=== PATIENT | male | born 1990 | race African-American/Black ===

== ENCOUNTER 2018-07-20 19:34 | Observation (INO) | payer MEDICAID ==
[~2018-07-20 19:34] MED LIST: LACTATED RINGERS 1,000 ML IV ONE
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
--- NOTE | 2018-07-20 21:45 | XRAY Report ---
Reason: rectal FB Procedure Date: 07/20/2018 Accession Number: [id number] / [id number] Procedure: XR - Abdomen 1 View X-Ray CPT Code: 26374 FULL RESULT: EXAM: ABDOMEN RADIOGRAPHY EXAM DATE: 07/20/2018 09:23 PM. CLINICAL HISTORY: Rectal FB. COMPARISON: None. TECHNIQUE: 1 view. FINDINGS: Bowel Gas Pattern: Nonspecific bowel gas pattern. Other: There is a 7.5 x 1.5 cm radiopacity projecting over the mid sacrum. There is a 1.7 x 1.0 cm radiopacity projecting over the left symphysis pubis. IMPRESSION: 1. There is a 7.5 x 1.5 cm radiopacity projecting over the mid sacrum. There is a 1.7 x 1.0 cm radiopacity projecting over the left symphysis pubis. 2. Nonspecific bowel gas pattern. RADIA
[2018-07-20] MEDS ORDERED: SODIUM CHLORIDE 0.9% 1,000 ML IV ONE (21:48)
[2018-07-20 22:05] LABS: BASOPHILS # (AUTO) 0.1 10^3/uL (0.0-0.1); BASOPHILS % (AUTO) 1.1 %; EOSINOPHILS # (AUTO) 0.2 10^3/uL (0.0-0.7); EOSINOPHILS % (AUTO) 2.1 %; LYMPHOCYTES # (AUTO) 1.4 10^3/uL (1.5-3.5); LYMPHOCYTES % (AUTO) 12.2 %; MEAN CORPUSCULAR HEMOGLOBIN 29.5 pg (27.0-31.0); MEAN CORPUSCULAR VOLUME 86.9 fL (80.0-94.0); MEAN PLATELET VOLUME 8.8 fL (7.4-11.4); MONOCYTES # (AUTO) 0.6 10^3/uL (0.0-1.0); MONOCYTES % (AUTO) 5.4 %; NEUTROPHILS # (AUTO) 9.1 10^3/uL (1.5-6.6); NEUTROPHILS % (AUTO) 79.2 %; PLT - PLATELET COUNT 261 10^3/uL (130-450); RED BLOOD COUNT 5.07 10^6/uL (4.70-6.10); RED CELL DISTRIBUTION WIDTH 14.1 % (12.0-15.0); WHITE BLOOD COUNT 11.5 x10^3/uL (4.8-10.8)
[2018-07-20] MEDS ORDERED: ceFAZolin 2 GM/50 ML 2 GM/50 ML BAG IV ONE (22:19)
[2018-07-20 22:20] LABS: ALBUMIN 4.6 g/dL (3.2-5.5); ALBUMIN/GLOBULIN RATIO 1.4 (1.0-2.2); BILIRUBIN,TOTAL 0.7 mg/dL (0.2-1.0); CALCIUM 9.7 mg/dL (8.5-10.3); CREATININE 0.8 mg/dL (0.6-1.2); TOTAL PROTEIN 7.8 g/dL (6.7-8.2)
--- NOTE | 2018-07-20 22:20 | ANESTHESIA ---
Pre-Anesthesia VS, & Labs - Diagnosis Rectal Foreign Body - Procedure Removal of rectal Foreign body Vital Signs: Temp Pulse Resp BP Pulse Ox 37.2 C 83 18 143/95 H 100 07/20/18 19:35 07/20/18 19:35 07/20/18 19:35 07/20/18 19:35 07/20/18 19:35 Height 6 ft 2 in Weight (kg) 84.2 kg Body Mass Index 23.8 - NPO Other Last Food Intake: 1700 pizza - Lab Results Current Lab Results: Laboratory Tests 07/20/18 21:58: WBC 11.5 H, RBC 5.07, Hgb 15.0, Hct 44.0, MCV 86.9, MCH 29.5, MCHC 34.0, RDW 14.1, Plt Count 261, MPV 8.8, Neut # (Auto) 9.1 H, Lymph # (Auto) 1.4 L, [place] # (Auto) 0.6, Eos # (Auto) 0.2, Baso # (Auto) 0.1, Absolute Nucleated RBC 0.02, Nucleated RBC % 0.2 Lab results reviewed: Yes Fish Bones: 07/20/18 21:58 Home Medications and Allergies Home Medications: Ambulatory Orders No Known Home Medications 07/20/18 Active Medications Sodium Chloride (Normal Saline 0.9%) 1,000 mls @ 150 mls/hr IV .Q6H40M ONE Stop: 07/21/18 04:27 No Known Home Medications 07/20/18 Allergies/Adverse Reactions: Allergies Allergy/AdvReac Type Severity Reaction Status Date / Time No Known Drug Allergies Allergy Verified 07/20/18 19:39 Anes History & Medical History - Anesthetic History Anesthesia Complications: reports: No previous complications Family history of Anesthesia Complications: Denies Family history of Malignant Hyperthermia: Denies - Medical History Cardiovascular: reports: None Pulmonary: reports: Asthma Gastrointestinal: reports: None Urinary: reports: None Neuro: reports: None Musculoskeletal: reports: None Endocrine/Autoimmune: reports: None Blood Disorders: reports: None Skin: reports: None Smoking Status: Current every day smoker (1/2 pack/day) Psychosocial: reports: No issues indicated Exam General: Alert, Oriented x3, Cooperative, No acute distress Dental: Poor dentition Mouth Openin Fingerbreadth Neck Mobility: Normal Mallampati classification: I Thyromental Distance: 4-6 cm Respiratory: Lungs clear, Normal breath sounds, No respiratory distress, No accessory muscle use Cardiovascular: Regular rate, Normal S1, Normal S2, No murmurs Mental/Cognitive Status: Alert/Oriented X3, Normal for patient Cognitive Status: Within normal limits Plan Anesthesia Type: General Consent for Procedure(s) Verified and Reviewed: Yes Code Status: Attempt Resuscitation ASA classification: 2-Mild systemic disease Is this case an emergency?: Yes
[2018-07-20] MEDS ORDERED: LACTATED RINGERS 1,000 ML IV ONE (22:54)
[2018-07-20] MEDS ORDERED: SUCCINYLCHOLINE 200 MG/10 ML VIAL IVP ONE (23:51)
[2018-07-20] MEDS ORDERED: KETOROLAC 30 MG/ML VIAL IVP ONE (23:51)
[2018-07-20] MEDS ORDERED: ROCURONIUM 50 MG/5 ML VIAL IVP ONE (23:51)
[2018-07-20] MEDS ORDERED: DEXAMETHASONE 4 MG/ML VIAL IVP ONE (23:51)
[2018-07-20] MEDS ORDERED: fentaNYL 250 MCG/5 ML VIAL IVP ONE (23:51)
[2018-07-20] MEDS ORDERED: MIDAZOLAM 2 MG/2 ML VIAL IVP ONE (23:51)
[2018-07-20] MEDS ORDERED: ONDANSETRON 4 MG/2 ML VIAL IVP ONE (23:51)
[2018-07-20] MEDS ORDERED: fentaNYL 100 MCG/2 ML VIAL IVP ONE (23:51)
[2018-07-20] MEDS ORDERED: PROPOFOL 200 MG/20 ML VIAL IVP ONE (23:51)
[2018-07-21] MEDS ORDERED: LACTATED RINGERS 1,000 ML IV ONE (00:40)
[2018-07-21] MEDS ORDERED: SUGAMMADEX 200 MG/2 ML VIAL IVP ONE (01:30)
[2018-07-21] MEDS ORDERED: ONDANSETRON 4 MG/2 ML VIAL IVP PRN (01:40)
[2018-07-21] MEDS ORDERED: SODIUM CHLORIDE FLUSH 0.9% 10 ML SYRINGE IVP PRN (01:40)
--- NOTE | 2018-07-21 01:40 | IMMEDIATE POSTOPERATIVE NOTE ---
Immediate Postoperative Note - Procedure Note Procedure Date: 07/21/18 Pre-Op Diagnosis: rectal foreign body Procedure: EUA, exploratory laparotomy Post-Op Diagnosis: colonic foreign body Primary Surgeon: shona Anesthesia Type: General ET tube Complications: No complications Estimated Blood Loss (in cc): 20 Plan of Care: admission with expectant management
[2018-07-21] MEDS ORDERED: MEPERIDINE 50 MG/ML VIAL ONE (02:09)
[2018-07-21] MEDS ORDERED: ACETAMINOPHEN 1,000 MG/100 ML 100 ML IV ONE (02:27)
[2018-07-21] MEDS: MORPHINE 2 MG/ML CARPUJECT IVP PRN ×2 (03:14→09:35)
[2018-07-21] MEDS: DEXTROSE 5%-0.45% NACL 1,000 ML IV SCH ×2 (03:46→13:34)
[2018-07-21] MEDS: BENZOCAINE/MENTHOL LOZENGE MM PRN (05:48)
[2018-07-21] MEDS: HYDROcod/ACETAM 5/325 MG TABLET PO PRN ×3 (05:48→22:27)
[2018-07-21] MEDS: SODIUM CHLORIDE FLUSH 0.9% 10 ML SYRINGE IVP SCH ×3 (07:28→23:42)
--- NOTE | 2018-07-21 08:54 | OPERATIVE REPORT ---
DATE OF SERVICE: 07/21/2018 Physician: Drew Maguire MD SURGEON: Drew Maguire MD PREOPERATIVE DIAGNOSIS: Colonic foreign body. POSTOPERATIVE DIAGNOSIS: Colonic foreign body. PROCEDURE PERFORMED: Rectal exam under anesthesia, sigmoidoscopy and exploratory laparotomy. ANESTHESIA TYPE/PROVIDER: General anesthesia. INDICATIONS FOR PROCEDURE: Patient is a 27-year-old man who presented to the emergency room with complaints of a foreign body passed transanally that he could not retrieve. In the emergency room, it was not able to be palpated, and a plain film x-ray showed it to be in the sigmoid colon. We explained that we would not be able to get it out at the bedside. He understands and agreed to go to the operating room. PROCEDURE IN DETAIL: The risks and benefits of the procedure were explained to the patient. He agreed to the procedure and was taken to the operating room and placed under general anesthesia and intubated. We began by performing a timeout, everyone in the room agreed. We made a quick digital exam of the rectum and could not feel any foreign body. We then used a rigid sigmoidoscope, but even fully inserted, could not visualize the foreign body. Next we placed a flexible colonoscope through the anus and advanced it 70 cm before we were able to visualize a black vibrator. There was a copious amount of stool that we were only partially able to clear out of the rectum. From the sigmoid, we were not able to at all. This made manipulation difficult. We attempted to snare the device, but was unsuccessful. Therefore, we withdrew the scope and positioned him for a laparotomy. We then prepped the abdomen. We made a lower midline incision, which was carried down to inside the peritoneal cavity. We palpated the sigmoid colon all the way up to the splenic flexure before finally finding the foreign body. We milked the device slowly distally until it emerged from the anus and could be retrieved. We then carefully examined the colon and did not find any signs of injury. Finally, we closed the fascia of our incision using #1 loop PDS with overlying skin traci. This terminated the procedure. He tolerated it well and was taken to recovery in stable condition. TD: 07/21/2018 02:04 REVISED 07/28/2018 jll removal of supervisor cooler service flag left in Orig. signed Date/Time: 07/21/18 0948 MTDD
[2018-07-21] MEDS ORDERED: ENOXAPARIN 40 MG/0.4 ML SYRINGE SUBQ SCH (09:00)
--- NOTE | 2018-07-21 10:05 | PROVIDER PROGRESS NOTE ---
Subjective - Prog Note Date Prog Note Date: 07/21/18 Prog Note Time: 10:03 - Subjective Pt reports feeling: Improved Subjective: Tolerating clears, pain well-controlled, no complaints. Objective - Vital Signs/Intake & Output Vital Signs: Vital Signs x48h Temp Pulse Pulse Resp BP BP Pulse Ox 07/21/18 09:40 36.8 C 78 18 139/79 H 100 07/21/18 07:40 36.9 C 80 18 118/68 98 07/21/18 05:40 36.5 C 77 16 128/73 96 07/21/18 05:10 36.7 C 71 16 148/67 H 98 07/21/18 03:01 36.6 C 87 18 141/66 H 99 07/21/18 02:30 69 12 125/71 96 07/21/18 02:20 36.4 C L 69 13 131/76 H 98 07/21/18 02:15 77 12 123/70 100 07/21/18 02:10 80 13 140/74 H 100 07/21/18 02:05 36.2 C L 82 13 162/70 H 100 Intake & Output: Intake & Output 07/18/18 07/19/18 07/20/18 07/21/18 23:59 23:59 23:59 23:59 Intake Total 1601.667 Output Total 1475 Balance 126.667 - Objective General Appearance: positive: No acute distress Eyes Bilateral: positive: Normal inspection ENT: positive: ENT inspection nml Neck: positive: Nml inspection Respiratory: positive: Chest non-tender Cardiovascular: positive: Regular rate & rhythm Abdomen: positive: Tenderness Back: positive: Nml inspection Skin: positive: Color nml Extremities: positive: Non-tender Neurologic/Psychiatric: positive: Oriented x3 - Lab Results Fish Bones: 07/20/18 21:58 07/20/18 21:58 Other Labs: Lab Results x24hrs 07/20/18 07/20/18 Range/Units 21:58 21:58 WBC 11.5 H (4.8-10.8) x10^3/uL RBC 5.07 (4.70-6.10) 10^6/uL Hgb 15.0 (14.0-18.0) g/dL Hct 44.0 (42.0-52.0) % MCV 86.9 (80.0-94.0) fL MCH 29.5 (27.0-31.0) pg MCHC 34.0 (32.0-36.0) g/dL RDW 14.1 (12.0-15.0) % Plt Count 261 (130-450) 10^3/uL MPV 8.8 (7.4-11.4) fL Neut # (Auto) 9.1 H (1.5-6.6) 10^3/uL Lymph # (Auto) 1.4 L (1.5-3.5) 10^3/uL [place] # (Auto) 0.6 (0.0-1.0) 10^3/uL Eos # (Auto) 0.2 (0.0-0.7) 10^3/uL Baso # (Auto) 0.1 (0.0-0.1) 10^3/uL Absolute Nucleated RBC 0.02 x10^3/uL Nucleated RBC % 0.2 /100WBC Sodium 142 (135-145) mmol/L Potassium 3.6 (3.5-5.0) mmol/L Chloride 105 (101-111) mmol/L Carbon Dioxide 29 (21-32) mmol/L Anion Gap 8.0 (6-13) BUN 9 (6-20) mg/dL Creatinine 0.8 (0.6-1.2) mg/dL Estimated GFR (MDRD) 142 (>89) Glucose 93 (70-100) mg/dL Calcium 9.7 (8.5-10.3) mg/dL Total Bilirubin 0.7 (0.2-1.0) mg/dL AST 17 (10-42) IU/L ALT 12 (10-60) IU/L Alkaline Phosphatase 57 (42-121) IU/L Total Protein 7.8 (6.7-8.2) g/dL Albumin 4.6 (3.2-5.5) g/dL Globulin 3.2 (2.1-4.2) g/dL Albumin/Globulin Ratio 1.4 (1.0-2.2) Lipase 40 (22-51) U/L ABX Reporting Has patient been on IV antibiotics over the past 48 hours?: No Assessment/Plan - Problem List (1) Rectal foreign body Impression: Pt recovering appropriately. Will continue pain control and expectant management. Qualifiers: Encounter type: initial encounter Qualified Code(s): T18.5XXA - Foreign body in anus and rectum, initial encounter
[2018-07-21] MEDS: KETOROLAC 30 MG/ML VIAL IVP SCH ×2 (17:42→23:42)
[2018-07-22] MEDS: BENZOCAINE/MENTHOL LOZENGE MM PRN ×2 (00:06→05:46)
[2018-07-22] MEDS: KETOROLAC 30 MG/ML VIAL IVP SCH (05:27)
[2018-07-22] MEDS: SODIUM CHLORIDE FLUSH 0.9% 10 ML SYRINGE IVP SCH (05:28)
--- NOTE | 2018-07-22 08:36 | PROVIDER PROGRESS NOTE ---
Assessment/Plan - Problem List (1) Rectal foreign body Qualifiers: Encounter type: subsequent encounter Qualified Code(s): T18.5XXD - Foreign body in anus and rectum, subsequent encounter Assessment/Plan: Doing well PO Day 1 s/p expl. lap. and removal of foreign body. Plan: home today; precautions; RTO 1 week for SR. - Current Meds Current Meds: Current Medications Generic Name Dose Route Start Last Admin Trade Name Freq PRN Reason Stop Dose Admin Hydrocodone Bitart/Acetaminophen 2 tab 07/21/18 17:11 07/21/18 22:27 [place] 5/325 PO 2 tab Q6H PRN Administration Pain 5 to 7 Enoxaparin Sodium 40 mg 07/21/18 09:00 07/21/18 09:26 Lovenox SUBQ 40 mg DAILY RIVER Administration Ketorolac Tromethamine 30 mg 07/21/18 18:00 07/22/18 05:27 Toradol Inj (30mg) IVP 07/26/18 17:59 30 mg Q6HR RIVER Administration Sodium Chloride 10 ml 07/21/18 01:40 07/21/18 03:50 Normal Saline Flush 0.9% IVP 10 ml PRN PRN Administration NEEDED PER PROVIDER ORDERS Sodium Chloride 10 ml 07/21/18 09:00 07/22/18 05:28 Normal Saline Flush 0.9% IVP 10 ml 0100,0900,1700 RIVER Administration Throat Lozenges 1 lozenge 07/21/18 03:04 07/22/18 05:46 Cepacol MM 1 lozenge Q2HR PRN Administration Throat pain - Lab Result Lab results reviewed: Yes Fish Bone Diagrams: 07/20/18 21:58 07/20/18 21:58 - Additional Planning Condition/Complexity: Improved My Orders: My Active Orders 07/21/18 17:11 HYDROcod/ACETAM 5/325 [[place] 5/325] 2 tab PO Q6H PRN 07/21/18 18:00 Ketorolac Inj (30Mg) [Toradol Inj (30Mg)] 30 mg IVP Q6HR 07/21/18 Dinner Regular Diet [DIET] Plan Discussed with:: Patient Time Spent: 15-30 minutes Subjective - Subjective Patient Reports: Feeling Better (tolerating liquid diet, ambulating, voiding well), Resting Comfortably, Abdominal Pain (incisional pain improving) Objective Vital Signs: Vital Signs - 24 hr 07/21/18 07/21/18 07/21/18 09:40 13:03 15:48 Temperature 36.8 C 36.8 C 37.1 C Heart Rate [ 78 80 66 Brachial] Respiratory 18 19 18 Rate Blood Pressure 139/79 H 132/71 H 117/67 [Right Brachial artery] O2 Saturation 100 100 100 07/21/18 07/21/18 07/22/18 20:45 23:49 03:28 Temperature 37.2 C 36.6 C 36.6 C Heart Rate [ 85 67 62 Brachial] Respiratory 18 18 18 Rate Blood Pressure 121/62 124/65 106/52 L [Right Brachial artery] O2 Saturation 98 95 96 07/22/18 07/22/18 05:31 08:10 Temperature 36.6 C 36.7 C Heart Rate [ 85 66 Brachial] Respiratory 18 18 Rate Blood Pressure 121/60 117/61 [Right Brachial artery] O2 Saturation 98 96 Oxygen O2 Source Room air I&O (Last 24 Hrs): Intake and Output Totals x24h 07/20/18 07/21/18 07/22/18 23:59 23:59 23:59 Intake Total 3631.600 400 Output Total 1475 Balance 2156.600 400 General: Alert, Oriented x3, Cooperative, No acute distress Neuro: Alert Cardiovascular: Regular rate Respiratory: Chest non-tender, No respiratory distress, Breath sounds nml Abdomen: Soft, No tenderness, Other (dressing dry/intact) Extremities: No edema, No tenderness/swelling - Results Results: Laboratory Results WBC 11.5 x10^3/uL (4.8-10.8) H 07/20/18 21:58 RBC 5.07 10^6/uL (4.70-6.10) 07/20/18 21:58 Hgb 15.0 g/dL (14.0-18.0) 07/20/18 21:58 Hct 44.0 % (42.0-52.0) 07/20/18 21:58 MCV 86.9 fL (80.0-94.0) 07/20/18 21:58 MCH 29.5 pg (27.0-31.0) 07/20/18 21:58 MCHC 34.0 g/dL (32.0-36.0) 07/20/18 21:58 RDW 14.1 % (12.0-15.0) 07/20/18 21:58 Plt Count 261 10^3/uL (130-450) 07/20/18 21:58 MPV 8.8 fL (7.4-11.4) 07/20/18 21:58 Neut # (Auto) 9.1 10^3/uL (1.5-6.6) H 07/20/18 21:58 Lymph # (Auto) 1.4 10^3/uL (1.5-3.5) L 07/20/18 21:58 [place] # (Auto) 0.6 10^3/uL (0.0-1.0) 07/20/18 21:58 Eos # (Auto) 0.2 10^3/uL (0.0-0.7) 07/20/18 21:58 Baso # (Auto) 0.1 10^3/uL (0.0-0.1) 07/20/18 21:58 Absolute Nucleated RBC 0.02 x10^3/uL 07/20/18 21:58 Nucleated RBC % 0.2 /100WBC 07/20/18 21:58 Sodium 142 mmol/L (135-145) 07/20/18 21:58 Potassium 3.6 mmol/L (3.5-5.0) 07/20/18 21:58 Chloride 105 mmol/L (101-111) 07/20/18 21:58 Carbon Dioxide 29 mmol/L (21-32) 07/20/18 21:58 Anion Gap 8.0 (6-13) 07/20/18 21:58 BUN 9 mg/dL (6-20) 07/20/18 21:58 Creatinine 0.8 mg/dL (0.6-1.2) 07/20/18 21:58 Estimated GFR (MDRD) 142 (>89) 07/20/18 21:58 Glucose 93 mg/dL (70-100) 07/20/18 21:58 Calcium 9.7 mg/dL (8.5-10.3) 07/20/18 21:58 Total Bilirubin 0.7 mg/dL (0.2-1.0) 07/20/18 21:58 AST 17 IU/L (10-42) 07/20/18 21:58 ALT 12 IU/L (10-60) 07/20/18 21:58 Alkaline Phosphatase 57 IU/L (42-121) 07/20/18 21:58 Total Protein 7.8 g/dL (6.7-8.2) 07/20/18 21:58 Albumin 4.6 g/dL (3.2-5.5) 07/20/18 21:58 Globulin 3.2 g/dL (2.1-4.2) 07/20/18 21:58 Albumin/Globulin Ratio 1.4 (1.0-2.2) 07/20/18 21:58 Lipase 40 U/L (22-51) 07/20/18 21:58 ABX Reporting Has patient been on IV antibiotics over the past 48 hours?: No
--- NOTE | 2018-07-22 08:46 | Discharge Plan ---
Discharge Plan Disposition: Home, Self Care Condition: Good Prescriptions: Hydrocodone/Acetaminophen [Hydrocodone-Acetamin 5-325 mg] 1 - 2 each PO Q6H PRN #15 tablet PRN Reason: Pain Ibuprofen 600 mg PO Q6H PRN #30 tablet PRN Reason: Pain Diet: Regular Activity Restrictions: no lifting more than 10 lbs for 2 weeks Shower Restrictions: No (no baths) Driving Restrictions: Yes (no driving while taking narcotic meds) Weight Bearing: Full Weight Instruction Topics: Acetaminophen Hydrocodone tablets or capsules, Incision Care Abdomen Additional Instructions or Follow Up instructions: remove dressing if it becomes loose or wet underneath; no need to replace it. follow up with Dr. Peres next week in his office; call [phone] for appointment. No Smoking: If you smoke, Please STOP! Call for help.
--- NOTE | 2018-07-22 08:55 | DISCHARGE SUMMARY ---
"Discharge Summary Admit Date: 07/21/18 Discharge Date: 07/22/18 Discharging Provider: Dr. Kannan Peres Code Status: Attempt Resuscitation Condition at Discharge: Good Discharge Disposition: 01 Home, Self Care Discharge Facility Name: [facility] - DIAGNOSES Admission Diagnoses: Rectal foreign body Discharge Diagnoses with Status of Each Condition: Resolved/removed. - HPI History of Present Illness: See HPI by Dr. Maguire - CONSULTS | PROCEDURES Procedures: Rigid sigmoidoscopy, colonoscopy, expl. lap. with retrieval/removal of foreign body. - HOSPITAL COURSE Hospital Course: Pt was taken to the OR on the evening of arrival where the above noted procedures were carried out without operative complications. Postop course was uncomplicated and pt was able to be discharged home on PO day 1 tolerating oral intake, ambulating, voiding well with good analgesia with oral medications. - ALLERGIES Allergies/Adverse Reactions: Allergies Allergy/AdvReac Type Severity Reaction Status Date / Time No Known Drug Allergies Allergy Verified 07/20/18 19:39 - MEDICATIONS Home Medications: Ambulatory Orders Medication Instructions Recorded Confirmed Hydrocodone/Acetaminophen 1 - 2 each PO Q6H PRN #15 tablet 07/22/18 [Hydrocodone-Acetamin 5-325 mg] Ibuprofen 600 mg PO Q6H PRN #30 tablet 07/22/18 - PHYSICAL EXAM AT DISCHARGE General Appearance: positive: No acute distress, Alert Respiratory: positive: Chest non-tender, No respiratory distress, Breath sounds nml Cardiovascular: positive: Regular rate & rhythm, No murmur, No gallop Abdomen: positive: Non-tender, No distention, Other (dressing dry/intact) Extremities: positive: No pedal edema. negative: Calf tenderness Neurologic/Psychiatric: positive: Oriented x3 - LABS Result Diagrams: 07/20/18 21:58 07/20/18 21:58 - FOLLOW UP Follow Up: With Dr. Peres next week - TIME SPENT Time Spent in Discharge (Minutes): 30"
[2018-07-22] MEDS: HYDROcod/ACETAM 5/325 MG TABLET PO PRN (10:39)
[2018-07-22 11:41] VITALS: BP 115/72
== END 2018-07-22 11:41 | disposition home or self-care (01) ==
LOC: ED 19:34 → SDS 21:57 → INTOOBSV 07-21 01:40 → MS2 07-21 01:40 → OBS 07-21 22:07
PROVIDERS: ADMIT Surgery; ATTEND Internal Medicine Gastroenterology
PROC: 0DCM0ZZ Extirpation of Matter from Descending Colon, Open Approach (ICD-10-PCS; principal; 2018-07-21)
PROC: 0DJD8ZZ Inspection of Lower Intestinal Tract, Via Natural or Artificial Opening Endoscopic (ICD-10-PCS; 2018-07-21)
DX: T18.4XXA Foreign body in colon, initial encounter (principal); F17.210 Nicotine dependence, cigarettes, uncomplicated
CPT/HCPCS: 36415; 45330; 45399; 74018; 80053; 83690; 85025; 99283; 99284; A9270; G0378; J0131; J0330; J0690; J1650; J2175; J3010; J7120